=== PATIENT | male | born 1970 | race Caucasian/White ===

== ENCOUNTER → 2020-05-16 13:02 | Outpatient (CLI) | payer SELFPAY ==
--- NOTE | ~2020-05-16 | XR_ITS ---
XR ankle RT min 3V 05/16/2020 13:36 Indication: Right ankle pain, redness and swelling. Procedure: 4 views right ankle Comparison: No prior studies for comparison. Findings: Ankle mortise intact. Talar dome within normal limits. There is a corticated ossific densit y superior to the tarsal bones on the lateral view, possibly old fracture. There is deformity of the midfoot, best seen on the lateral view. No significant soft tissue abnormality is identified. There i s mild soft tissue swelling at the lateral malleolus. No foreign bodies. Impression: 1: No acute fracture is identified. 2: Deformity of the midfoot, best seen on the lateral view with probable old fracture fragment superi thanh. Consider neuropathic joint in the appropriate clinical setting. If there is concern for osteomy elitis, further evaluation with MRI is recommended. Reviewed, dictated and finalized at location A. ICATION TESTER Impression: 1: No acute fracture is identified. 2: Deformity of the midfoot, best seen on the lateral view with probable old fr acture fragment superiorly. Consider neuropathic joint in the appropriate clini brit setting. If there is concern for osteomyelitis, further evaluation with MRI is recommended.
== END ==
DX: M25.571 Pain in right ankle and joints of right foot (principal); M79.89 Other specified soft tissue disorders
CPT/HCPCS: 73610

== ENCOUNTER 2020-06-07 13:59 | Emergency (ER) | payer SELFPAY ==
--- NOTE | ~2020-06-07 | US_ITS ---
EXAMINATION: US venous doppler LE RT DATE: 06/07/2020 15:09 INDICATION: Right lower limb pain. TECHNIQUE: Grayscale ultrasound images without and with compression and Doppler ultrasound images of the right lower extremity veins were obtained. COMPARISON: None. FINDINGS: The visualized portions of right common femoral vein, profunda (deep) femoral vein, femoral vein, pop liteal vein, peroneal veins, posterior tibial veins, and greater saphenous vein outflow are patent. IMPRESSION: 1. No deep venous thrombosis. Reviewed, dictated and finalized at location A. BUFFER
--- NOTE | ~2020-06-07 | XR_ITS ---
EXAMINATION: XR knee RT 3V DATE: 06/07/2020 14:32 INDICATION: Right knee pain and swelling. TECHNIQUE: 3 views of right knee were obtained. COMPARISON: None. FINDINGS: Bone alignment is normal. No fracture. There is mild tricompartmental osteoarthritis. There is a small knee joint effusion. IMPRESSION: 1. Mild right knee osteoarthritis. 2. Small right knee joint effusion. Reviewed, dictated and finalized at location A. RCYCLE SALES ASSOCIATE
--- NOTE | ~2020-06-07 | XR_ITS ---
EXAMINATION: XR foot RT min 3V DATE: 06/07/2020 15:42 INDICATION: Right foot pain. TECHNIQUE: 4 views of right foot were obtained. COMPARISON: None. FINDINGS: Pes planus is noted. There is lateral subluxation of second metatarsal with respect to inte rmediate cuneiform. No acute fracture. There are old healed fractures of the second-fifth proximal ph alanges. Periosteal reaction of the second-fourth metatarsal diaphyses is likely secondary to venous stasis. There is severe osteoarthritis of second and third tarsometatarsal joints and mild to moderat e osteoarthritis of the other Lisfranc joints. There is moderate osteoarthritis of the naviculocuneif orm joints. There is mild osteoarthritis of most of the interphalangeal joints. There are enthesophyt es at the posterior and plantar aspects of calcaneal tuberosity. IMPRESSION: 1. Polyarticular osteoarthritis. If the patient is not diabetic, Lisfranc joint subluxation and osteo arthritis may be posttraumatic. Reviewed, dictated and finalized at location A. DESIGN ENGINEER IMPRESSION: 1. Polyarticular osteoarthritis. If the patient is not diabetic, Lisfranc joint subluxation and osteoarthritis may be posttraumatic.
--- NOTE | ~2020-06-07 | XR_ITS ---
EXAMINATION: XR ankle RT min 3V DATE: 06/07/2020 14:50 INDICATION: Right ankle pain. TECHNIQUE: 4 views of right ankle were obtained. COMPARISON: Right ankle radiographs 05/16/2020 FINDINGS: Again seen is a small fragment of heterotopic ossification distal to medial malleolus, like ly from old injury. Pes planus is noted. No acute fracture. There is an osteochondral lesion of later al talar dome. There is severe midfoot osteoarthritis. Ankle soft tissue swelling is noted. IMPRESSION: 1. Polyarticular osteoarthritis. Severe midfoot osteoarthritis may be secondary to neuropathic osteoa rthropathy. Consider foot radiographs. 2. Pes planus. Reviewed, dictated and finalized at location A. CIATE PROFESSOR OF COUNSELING IMPRESSION: 1. Polyarticular osteoarthritis. Severe midfoot osteoarthritis may be secondary to neuropathic osteoarthropathy. Consider foot radiographs. 2. Pes planus.
[2020-06-07 14:08] VITALS: BP 115/70; PULSE 94; RESP 20; TEMP 36.3; O2SAT 99
[2020-06-07 14:52] LABS: Basophils Percent Auto 0.4 % (0.2-1.2); Eosinophils Absolute Auto 0.4 K/mm3 (0-0.3); Eosinophils Percent Auto 4.4 % (0-4.4); Hemoglobin 12.3 g/dL (14.0-18.0); Immature Granulocyte Absolute 0.05 K/mm3 (0.00-0.031); Immature Granulocyte Percent A 0.6 % (0-0.5); Lymphocytes Absolute Auto 1.43 K/mm3 (0.9-3.2); Lymphocytes Percent Auto 17.9 % (18.3-44.2); Mean Corpuscular HGB Conc 34.2 g/dl (32-36); Mean Corpuscular Hemoglobin 32.2 pg (26-34); Mean Corpuscular Volume 94.2 fl (80-100); Mean Platelet Volume 9.7 fl (7.4-10.4); Monocytes Absolute Auto 1.2 K/mm3 (0.1-0.6); Monocytes Percent Auto 14.6 % (2.6-8.5); Neutrophils Percent Auto 62.1 % (45.5-73.1); Platelet Count Result 215 k/mm3 (150-375); Red Blood Count 3.82 M/mm3 (4.6-6.20); Red Cell Distribution Width 11.9 % (11.5-14.5)
[2020-06-07 15:05] LABS: Uric Acid 7.3 mg/dL (3.5-8.5)
--- NOTE | 2020-06-07 15:21 | ED.GENADULT ---
HPI - General Adult General Chief complaint: Extremity Injury, Lower Stated complaint: right knee pain Time Seen by Provider: 06/07/20 14:19 Source: patient Mode of arrival: EMS Limitations: no limitations History of Present Illness HPI narrative: Patient is a 49-year-old male who presents to emergency department for evaluation of right leg pain and swelling patient notes pain around the ankle joint and foot that radiates up the leg denies injury or trauma notes he had a similar occurrence in the past possibly diagnosed as gout or an inflammatory arthropathy patient on arrival is in no distress denies any fever chills nausea vomiting injury or trauma Related Data Home Medications Medication Instructions Recorded Confirmed chlordiazepoxide 06/07/20 ibuprofen 06/07/20 lisinopril-hydrochlorothiazide 06/07/20 Allergies Allergy/AdvReac Type Severity Reaction Status Date / Time No Known Allergies Allergy Verified 06/07/20 14:22 Review of Systems Review of Systems: All systems reviewed & are unremarkable except as noted in HPI and below PMFSH Surgical History Surgical History (Updated 06/07/20 @ 15:23 by Jaret Cabrera PA-C) History of orthopedic surgery Social History Social History (Updated 06/07/20 @ 15:22 by Jaret Cabrera PA-C) Alcohol intake: current Gender identity (if verbalized by the patient): Male Exam Narrative: Exam Narrative: GENERAL: Well-appearing, well-nourished, and in no acute distress. HEAD: Normocephalic, atraumatic. EYES: PERRLA and EOMI. ENT: Nares clear, no rhinorrhea or epistaxis. Mucous membranes moist. CHEST: Clear to auscultation. No respiratory distress. No wheezes rales or rhonchi HEART: Regular rate and rhythm. No murmur heard. Normal peripheral pulses. ABDOMEN: Soft, nontender, nondistended EXTREMITIES: Normal range of motion. No edema. Slight swelling around the ankle no other deformities noted no calf tenderness no knee tenderness no erythema or warmth to touch or fluctuance noted SKIN: Warm, dry, no rash. NEURO: No focal deficits. Alert and oriented x3. Neurovascularly intact. Capillary refill less than 2 seconds PSYCH: Normal mood and affect. Course Course Emergency Course: Patient without any high risk changes in his imaging or evaluation today this is likely an inflammatory arthropathy and will be managed accordingly patient will follow with his primary care for further evaluation will also be given podiatry referrals patient is afebrile nontoxic-appearing at this time in no distress and felt appropriate for outpatient reevaluation Vital Signs Vital signs: Vital Signs Temperature 97.4 F L 06/07/20 14:08 Pulse Rate 94 06/07/20 14:08 Respiratory Rate 20 06/07/20 14:08 Blood Pressure 115/70 06/07/20 14:08 Pulse Oximetry 99 06/07/20 14:08 Temperature 97.4 F L 06/07/20 14:08 Pulse Rate 94 06/07/20 14:08 Respiratory Rate 20 06/07/20 14:08 Blood Pressure 115/70 06/07/20 14:08 Pulse Oximetry 99 06/07/20 14:08 Medical Decision Making MDM Narrative Medical decision making narrative: Patients injury or pain is consistent with musculoskeletal etiology. No signs of neurological or vascular compromise on exam. Compartments and tisues are soft without signs of compartment syndrome. Pain is felt appropriate for further evaluation on an outpatient basis. Will be treated for inflammatory arthropathy Vital Signs Vital Signs: Vital Signs Temperature 97.4 F L 06/07/20 14:08 Pulse Rate 94 06/07/20 14:08 Respiratory Rate 20 06/07/20 14:08 Blood Pressure 115/70 06/07/20 14:08 Pulse Oximetry 99 06/07/20 14:08 Temperature 97.4 F L 06/07/20 14:08 Pulse Rate 94 06/07/20 14:08 Respiratory Rate 20 06/07/20 14:08 Blood Pressure 115/70 06/07/20 14:08 Pulse Oximetry 99 06/07/20 14:08 Lab Data Result diagrams: 06/07/20 14:46 Labs: Lab Results 06/07/20 06/07/20 Range/Units 14:
[2020-06-07 15:27] LABS: Erythrocyte Sedimentation Rate 118 mm/hr (0-20)
[2020-06-07] MEDS: COLCHICINE 0.6 MG TABLET 1.2 MG PO (15:54)
[2020-06-07] MEDS: KETOROLAC (*BKC) 60 MG/2 ML VIAL IM (15:54)
[2020-06-07 16:24] VITALS: TEMP 36.3
[2020-06-07 16:49] VITALS: BP 132/83; PULSE 98; RESP 18; O2SAT 97
== END 2020-06-07 18:12 | disposition home or self-care (01) ==
PROVIDERS: Emergency Medicine Emergency Medical Services; Emergency Provider Emergency Medicine
DX: M25.571 Pain in right ankle and joints of right foot (principal); M19.071 Primary osteoarthritis, right ankle and foot; M21.41 Flat foot [pes planus] (acquired), right foot; M17.11 Unilateral primary osteoarthritis, right knee
CPT/HCPCS: 36415; 73562; 73610; 73630; 84550; 85025; 85652; 86140; 93971; 96372; 99285; A9270; J1885